=== PATIENT | female | born 1960 | race Caucasian/White ===

== ENCOUNTER 2020-04-20 12:43 | Emergency (ER) | payer OTHER ==
[~2020-04-20] VITALS: Ht 162.6 cm; Wt 93.0 kg
[~2020-04-20 12:43] MED LIST: AZU500 PO; CLE150 PO; DIC250 PO; FOL1 PO; GLU500 PO; HCTZ PO; LOP50 PO; LOVASTATIN40 MG PO; METFORMIN500 M1 PO; METOCLOPRAMIDE5 M1 PO; MEV20 PO; NEURONTIN300 MG PO; NEXIUM40 MG PO; ROB500 PO; TRAMADOL HCL50 MG PO; ULT50 PO; VITAMIN D1000 I1 PO; VITD PO; Z PO; [UNRECOGNIZED DRUG - CODE] PO; [UNRECOGNIZED DRUG - OTHER] PO
[2020-04-20 13:00] VITALS: Ht 162.6 cm; Wt 93.0 kg
[2020-04-20 15:30] VITALS: BP 119/65
== END 2020-04-20 15:30 | disposition home or self-care (01) ==
LOC: ED
DX: U07.1 COVID-19 (principal); I10 Essential (primary) hypertension; E11.9 Type 2 diabetes mellitus without complications; E78.00 Pure hypercholesterolemia, unspecified; Z88.6 Allergy status to analgesic agent
CPT/HCPCS: U0003